=== PATIENT | female | born 1985 | race Caucasian/White ===

== ENCOUNTER 2024-08-03 07:39 | Day surgery (SDC) | payer MEDICAID ==
[2024-07-27 10:58] LABS: BASOPHILS % (AUTO) 0.4 % (0-1); EOSINOPHILS # (AUTO) 0.1 X10'3 (0-0.9); EOSINOPHILS % (AUTO) 1.2 % (0-6); LYMPHOCYTES # (AUTO) 3.2 X10'3 (1.1-4.8); LYMPHOCYTES % (AUTO) 32.6 % (21-51); MEAN CORPUSCULAR HEMOGLOBIN 29.7 PG (27.0-31.0); MEAN CORPUSCULAR HGB CONC 33.4 g/dL (33.0-36.5); MEAN PLATELET VOLUME 7.6 FL (7.4-10.4); MONOCYTES # (AUTO) 0.9 X10'3 (0-0.9); MONOCYTES % (AUTO) 9.4 % (2-12); NEUTROPHILS # (AUTO) 5.6 X10'3 (1.8-7.7); NEUTROPHILS % (AUTO) 56.4 % (42-75); PRE OP HEMOGLOBIN 13.4 g/dL (12.0-16.0); PRE OP PLATELET COUNT 351 X10'3 (140-440); PRE OP WHITE BLOOD COUNT 9.9 10'3 (4.8-10.8); RED CELL DISTRIBUTION WIDTH 14.8 % (11.5-14.5)
[2024-07-27 11:21] LABS: ALBUMIN 3.7 G/DL (3.4-5.0); ALBUMIN/GLOBULIN RATIO 1.1 (1.1-1.5); ALKALINE PHOSPHATASE 79 IU/L (46-116); BLOOD UREA NITROGEN 11 MG/DL (7-18); BUN/CREATININE RATIO 11.2 (10.0-20.0); CALCIUM 8.8 MG/DL (8.5-10.1); CHLORIDE 108 MMOL/L (99-107); CREATININE 0.98 MG/DL (0.40-0.90); PRE OP ALT 19 U/L (30-65); PRE OP ANION GAP 7 (8-16); PRE OP AST 12 U/L (10-37); PRE OP BILIRUB, TOTAL 0.3 MG/DL (0.0-1.0); PRE OP GLUCOSE 90 MG/DL (70-104); PRE OP POTASSIUM 3.8 MMOL/L (3.4-5.1); PRE OP SODIUM 141 MMOL/L (135-145); TOTAL PROTEIN 7.2 G/DL (6.4-8.2); eGFR 63 ML/MIN
[2024-07-27 11:24] LABS: HCG SERUM QL NEGATIVE
[~2024-08-03] VITALS: Ht 162.6 cm; Wt 89.7 kg
[2024-08-03] VITALS (8 sets, daily range): BP systolic 119–169; BP diastolic 70–101; PULSE 57–71; RESP 14–18; TEMP 98.1; O2SAT 97–100
[~2024-08-03 07:39] MED LIST: ALBU18HF2 INH; BISA-155 PO; CHOL500050 PO; FEXO180T94 PO; FLUT16SP BOTHNARES; GALC120P SQ; RIME75TA PO; SEMA0.253 SQ
[2024-08-03] MEDS: famotidine 20mg tablet PO ONE (08:22)
[2024-08-03] MEDS: ringers solution, lacted 1,000 ML IV SCH ×2 (08:24→12:31)
[2024-08-03] MEDS ORDERED: morphine 4 MG/ML inj SYRINge IV PRN (10:35)
[2024-08-03] MEDS ORDERED: morphine 2 MG/ML inj. syringe IV PRN (10:35)
[2024-08-03] MEDS ORDERED: meperidine/PF 25mg/ml syringe IV PRN ×3 (10:35)
[2024-08-03] MEDS ORDERED: propofol inj 20 ML IV ONE (10:59)
[2024-08-03] MEDS ORDERED: fentaNYL/PF 50MCG/1 ML 2ML syringe ONE (11:05)
[2024-08-03] MEDS ORDERED: midazolam 1 mg/ML 2ml injection ONE (11:05)
[2024-08-03] MEDS ORDERED: sevoflurane 250ml liquid IH ONE (11:18)
[2024-08-03] MEDS ORDERED: dexamethasone sod phosphate 4mg/ml inj. ONE (11:39)
[2024-08-03] MEDS: ketorolac trometh 30MG/ML vial 30 MG/ML VIAL IV ONE (12:30)
[2024-08-03] MEDS: ondansetron/PF 4mg/2ml inj IV PRN (12:43)
[2024-08-03] MEDS: proCHLORperazine 10 MG/2 ml inj IV PRN (12:53)
== END 2024-08-03 13:09 | disposition home or self-care (01) ==
LOC: PAS 07:39
PROVIDERS: ATTEND Obstetrics & Gynecology
DX: N92.0 Excessive and frequent menstruation with regular cycle (principal); E66.9 Obesity, unspecified; J45.909 Unspecified asthma, uncomplicated; G43.909 Migraine, unspecified, not intractable, without status migrainosus; F43.10 Post-traumatic stress disorder, unspecified; F41.9 Anxiety disorder, unspecified; I25.2 Old myocardial infarction; F12.90 Cannabis use, unspecified, uncomplicated; Z87.891 Personal history of nicotine dependence; Z79.1 Long term (current) use of non-steroidal anti-inflammatories (NSAID); Z79.891 Long term (current) use of opiate analgesic; Z79.899 Other long term (current) drug therapy; Z98.51 Tubal ligation status; Z98.891 History of uterine scar from previous surgery; Z68.33 Body mass index [BMI] 33.0-33.9, adult; Z82.5 Family history of asthma and other chronic lower respiratory diseases; Z82.49 Family history of ischemic heart disease and other diseases of the circulatory system
CPT/HCPCS: 36415; 58563; 80053; 82948; 84702; 84703; 85025; J0780; J1100; J2250; J2405; J2704; J3010; J7030; J7120; Z7506; Z7508; Z7512; A4355; A4618; A4649